=== PATIENT | male | born 1950 | race Caucasian/White ===

== ENCOUNTER 2022-01-29 07:46 | Outpatient (CLI) | payer BC, SELFPAY ==
--- OUTSIDE RECORDS SUMMARY | 2022-01-29 07:49 | XMS_ITS | Clinical Summary ---
:1950 Author Organization [facility] [place] [address] Care Team Providers Name Role Phone Jorge Mcdaniel MD Primary Care Provider Allergies No known active allergies Medications Medication Sig Dispensed Refills Start Date End Date Status omega 9-rog-exr-fish oil (FISH Daily 0 Active OIL) 100-160-1,000 mg cap mcpllvgldtrfz-lqtdirc-styn-mineral Daily 0 Active s tab tablet fluticasone (50 mcg per actuation) 10 11/23 Active nasal solution (FLONASE) hydroCHLOROthiazide (HCTZ) 25 mg 2 019 Active tablet simvastatin (ZOCOR) 20 mg tablet 0 019 Active Active Problems Problem Noted Date Allergic rhinitis, cause unspecified 05/23/2006 Immunizations Name Administration Dates Next Due Td (Age >=7 Years) 07/03/2004 Social History Tobacco Use Types Packs/Day Years Used Date Never Smoker Smokeless Tobacco: Never Used Tobacco Cessation: Counseling Given: Yes Alcohol Use Standard Drinks/Week Comments Yes 0 (1 standard drink = 0.6 oz pure alcoho l) Alcohol Habits Answer Date Recorded How often do you have a drink containing alcohol? Monthly or less 01/24/2019 How many drinks containing alcohol do you have on a 1 or 2 01/24/2019 typical day when you are drinking? How often do you have six or more drinks on one Never 01/24/2019 occasion? 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 Height - - Body Mass Index - - Plan of Treatment Health Maintenance Due Date Last Done Comments COVID-19 vaccine series (#1) 1950 Tdap 1963 Depression screening for age 12+ 1964 BMI (ht and wt on same day) for age 18+ 1970 Hepatitis C screening for age 18-79 1970 Colonoscopy through age 75 1997 Zoster (shingles) series for age 50+ (1 of 2) 2002 Lipids for age 45-75 09/06/2010 09/06/2005 Tetanus booster 07/03/2014 07/03/2004 Pneumococcal series for age 65+ (1 - PCV) 2017 Influenza for age 65+ 11/12/2021 Results Not on filefrom Last 3 Months Insurance Payer Benefit Plan / Subscriber ID Effective Dates Phone Addre ss Type Group [id number] 2017-Present [address] [place] [address] [phone] [id number] (Work) Care Teams Manager University Relationship Specialty Start Date End Date Jorge Mcdaniel MD PCP - General Family Practice 01/24/191999 [place] [phone]
[2022-01-29 09:19] LABS: Albumin* 3.9 g/dL (3.3-5.0)
[2022-01-29 09:20] LABS: Chloride* 107 mmol/L (96-114); Potassium* 4.1 mmol/L (3.6-5.1); Sodium* 143 mmol/L (135-149)
[2022-01-29 09:22] LABS: Bilirubin Total* 0.8 mg/dL (0.1-1.5); Carbon Dioxide* 30 mmol/L (20-32); Cholesterol* 127 mg/dL (90-199); Creatinine* 1.3 mg/dL (0.5-1.5); Estimated Glomerular Filt Rate 59 ml/min; Total Protein* 6.7 g/dL (6.0-8.3)
[2022-01-29 09:23] LABS: Alanine Aminotransferase* 23 U/L (4-50); Alkaline Phosphatase* 106 U/L (40-150); Aspartate Amino Transferase* 23 U/L (12-35); Blood Urea Nitrogen* 18 mg/dL (7-30); Calcium* 8.8 mg/dL (8.4-10.6); Glucose* 97 mg/dL (60-115); HDL Cholesterol* 45 mg/dL (>=40); LDL Cholesterol Calculated 70 mg/dL (<100); Triglycerides* 61 mg/dL (40-149)
== END 2022-01-29 07:47 | disposition home or self-care (01) ==
PROVIDERS: PCP Family Medicine; Visit Provider Family Medicine
DX: Z00.00 Encounter for general adult medical examination without abnormal findings (principal); E78.5 Hyperlipidemia, unspecified; I10 Essential (primary) hypertension
CPT/HCPCS: 80053; 80061

== ENCOUNTER 2023-02-02 07:47 | Outpatient (CLI) | payer BC, SELFPAY | END 2023-02-02 07:48 | disposition home or self-care (01) | LOC: NFLDREF 02-03 11:43 | PROVIDERS: PCP Family Medicine; Referring Provider Family Medicine; Visit Provider Family Medicine | DX: I10 Essential (primary) hypertension (principal); E78.5 Hyperlipidemia, unspecified; Z12.5 Encounter for screening for malignant neoplasm of prostate | CPT/HCPCS: 80053; 80061; 84153 ==

== ENCOUNTER 2023-02-24 11:56 | Outpatient (CLI) | payer BC, SELFPAY ==
--- NOTE | 2023-02-24 13:32 | W.ANESCHARGE ---
Anesthesia Charges Start Date/Time Anesthesia Start Date: 02/24/23 Anesthesia Start Time: 12:52 Stop Date/Time Anesthesia Stop Date: 02/24/23 Anesthesia Stop Time: 13:30
--- NOTE | 2023-02-24 14:54 | W.ANESCHARGE ---
Anesthesia Charges Start Date/Time Anesthesia Start Date: 02/24/23 Anesthesia Start Time: 12:52 Stop Date/Time Anesthesia Stop Date: 02/24/23 Anesthesia Stop Time: 13:30
== END 2023-02-24 11:57 | disposition home or self-care (01) ==
LOC: OP CLINIC 11:56
PROVIDERS: PCP Family Medicine; Visit Provider Surgery
DX: K63.5 Polyp of colon (principal); Z86.010 Personal history of colon polyps
CPT/HCPCS: 00811; 45385; 88305; J2704

== ENCOUNTER 2024-04-02 07:51 | Outpatient (CLI) | payer MEDICARE, BC, SELFPAY | END 2024-04-02 07:52 | disposition home or self-care (01) | LOC: NFLDREF 04-10 06:54 | PROVIDERS: PCP Family Medicine; Referring Provider Family Medicine; Visit Provider Family Medicine | DX: I10 Essential (primary) hypertension (principal); E78.5 Hyperlipidemia, unspecified; Z12.5 Encounter for screening for malignant neoplasm of prostate | CPT/HCPCS: 80053; 80061; G0103 ==

== ENCOUNTER 2024-04-05 08:03 | Outpatient (CLI) | payer MEDICARE, BC, SELFPAY | END 2024-04-05 08:04 | disposition home or self-care (01) | LOC: NFLDREF 08:03 | PROVIDERS: PCP Family Medicine; Visit Provider Family Medicine | DX: R53.83 Other fatigue (principal); Z13.29 Encounter for screening for other suspected endocrine disorder | CPT/HCPCS: 84443 ==